=== PATIENT | female | born 1990 | race Caucasian/White ===

== ENCOUNTER 2017-05-29 04:48 | Inpatient (IN) | payer MEDICAID, OTHER ==
[2017-05-29 06:49] LABS: ADD UMIC YES; UR AMORPHOUS CRYSTAL FEW /HPF (NONE SEEN); UR ASCORBIC ACID NEGATIVE (NEGATIVE); UR BACTERIA MODERATE /HPF (NONE SEEN); UR BILIRUBIN (Dip) NEGATIVE (NEGATIVE); UR BLOOD (Dip) NEGATIVE (NEGATIVE); UR CLARITY CLOUDY (CLEAR); UR COLOR YELLOW (YELLOW); UR GLUCOSE (Dip) NEGATIVE (NEGATIVE); UR KETONES (Dip) NEGATIVE (NEGATIVE); UR LEUKOCYTE ESTERASE (Dip) 3+ Leu/ul (NEGATIVE); UR NITRITE (Dip) NEGATIVE (NEGATIVE); UR RBC 7 /HPF (0-5); UR SPECIFIC GRAVITY (Dip) 1.009 (1.003-1.030); UR SQUAMOUS EPITHELIAL CELL MODERATE /HPF (FEW); UR TOTAL PROTEIN (Dip) NEGATIVE (NEGATIVE); UR UROBILINOGEN (Dip) NEGATIVE (NEGATIVE); UR WBC 0 /HPF (0-5)
[2017-05-29] MEDS: LACTATED RINGER'S 1,000 ML IV ×2 (06:54→11:18)
[2017-05-29 07:08] LABS: BARBITURATES Negative (NEGATIVE); BENZODIAZEPINES Negative (NEGATIVE); CANNABINOIDS Negative (NEGATIVE); COCAINE Negative (NEGATIVE); OPIATES Positive (NEGATIVE)
[2017-05-29] MEDS ORDERED: NIFEdipine 10 MG CAP (07:20)
[2017-05-29 07:21] LABS: AMPHETAMINE/METHAMPHETAMINE POSITIVE (NEGATIVE)
[2017-05-29] MEDS: NIFEdipine 10 MG CAP PO ×2 (07:50→08:00)
[2017-05-29] MEDS: BETAMET NA PHOS/AC(6 MG/ML) 5ML INJ IM ×2 (09:00→10:39)
[2017-05-29] MEDS ORDERED: AMPICILLIN 1 GM/NS (PMX) 50 ML IVPB (09:00)
[2017-05-29] MEDS: AMPICILLIN 2 GM/NS (PMX) 100 ML IVPB (09:10)
[2017-05-29 10:18] LABS: RUPTURE FETAL MEMBRANES NEGATIVE (NEGATIVE)
[2017-05-29] MEDS: FENTAnyl 50 MCG/ML VIAL IV ×2 (10:24→10:30)
[2017-05-29 10:49] LABS: ADD MAN DIFF? NO
[2017-05-29 10:51] LABS: BASOPHILS % 0.5 % (0.0-2.0); EOSINOPHILS # 0.1 10^3/ul (0.0-0.5); EOSINOPHILS % 0.7 % (0.0-7.0); HEMATOCRIT 28.6 % (37.0-47.0); HEMOGLOBIN 9.1 g/dl (12.0-16.0); LYMPHOCYTES # 3.2 10^3/ul (0.8-2.9); LYMPHOCYTES % 36.3 % (15.0-51.0); MEAN CORPUSCULAR HEMOGLOBIN 24.9 pg (29.0-33.0); MEAN CORPUSCULAR HGB CONC 31.8 g/dl (32.0-37.0); MEAN CORPUSCULAR VOLUME 78.1 fl (82.0-101.0); MEAN PLATELET VOLUME 11.8 fl (7.4-10.4); MONOCYTE # 0.6 10^3/ul (0.3-0.9); MONOCYTES % 6.8 % (0.0-11.0); NEUTROPHIL # 4.8 10^3/ul (1.6-7.5); NEUTROPHILS % 55.1 % (39.0-77.0); PLATELET COUNT 289 10^3/UL (140-415); RED BLOOD COUNT 3.66 10^6/ul (4.20-5.40); RED CELL DISTRIBUTION WIDTH 16.2 % (11.5-14.5)
[2017-05-29 10:51] LABS: WHITE BLOOD COUNT 8.7 10^3/ul (4.8-10.8)
[2017-05-29] MEDS ORDERED: OXYTOCIN 30 UNITS/LR 500 ML IV ×3 (11:00→13:00)
[2017-05-29] MEDS ORDERED: IBUPROFEN 600 MG TAB PO (11:00)
[2017-05-29] MEDS ORDERED: LIDOCAINE 1% (MPF) 30 ML INJ INJ (11:00)
[2017-05-29] MEDS ORDERED: METHYLERGONOVINE 0.2 MG INJ IM ×2 (11:00→13:00)
[2017-05-29] MEDS ORDERED: CARBOPROST 250 MCG INJ IM ×2 (11:00→13:00)
[2017-05-29] MEDS ORDERED: MISOPROSTOL 200 MCG TAB PR ×2 (11:00→13:00)
[2017-05-29] MEDS ORDERED: FENTAnyl 2MCG/ML-ROPIV 0.2% 100 ML (11:45)
[2017-05-29 11:47] LABS: HEPATITIS B SURFACE ANTIGEN NEGATIVE (NEGATIVE)
[2017-05-29] MEDS ORDERED: NIFEdipine 10 MG CAP PO (12:00)
[2017-05-29 12:07] LABS: HIV 1&2 ANTIBODY NEGATIVE (NEGATIVE)
[2017-05-29] MEDS: OXYTOCIN 30 UNITS/LR 500 ML IV ×2 (12:23→13:52)
[2017-05-29 12:52] LABS: INR 0.94; PROTIME 12.7 Sec (11.9-14.9)
[2017-05-29 12:53] LABS: PARTIAL THROMBOPLASTIN TIME 31.8 Sec (25.0-35.0)
[2017-05-29] MEDS ORDERED: DIPHENHYDRAMINE 25 MG CAP PO (13:00)
[2017-05-29] MEDS ORDERED: ACETAMINOPHEN 325 MG TAB PO (13:00)
[2017-05-29] MEDS ORDERED: LANOLIN 7 GM TUBE TOP (13:00)
[2017-05-29] MEDS ORDERED: WITCH HAZEL/GLYCERIN PAD PR (13:00)
[2017-05-29] MEDS: ONDANSETRON 4 MG INJ IV (13:55)
[2017-05-29] MEDS ORDERED: FENTAnyl 2MCG/ML-ROPIV 0.2% 100 ML BAG EPI (14:30)
[2017-05-29] MEDS ORDERED: ZOLPIDEM 5 MG TAB PO (14:30)
[2017-05-29] MEDS ORDERED: DIPHENHYDRAMINE 50 MG INJ IV (14:30)
[2017-05-29] MEDS ORDERED: HYDROmorphONE 0.5 MG/0.5 ML SYG IV ×2 (14:30)
[2017-05-29] MEDS ORDERED: KETOROLAC 30 MG INJ IV (14:30)
[2017-05-29] MEDS ORDERED: NALOXONE (0.4 MG/ML) INJ IV (14:30)
[2017-05-29] MEDS ORDERED: ONDANSETRON 4 MG INJ IV (14:30)
[2017-05-29] MEDS: IBUPROFEN 600 MG TAB PO ×2 (18:31→23:41)
[2017-05-29] MEDS: HYDROCODONE/APAP (5/325) TAB PO (20:18)
[2017-05-29] MEDS: SENNA/DOCUSATE NA (8.6MG/50MG) TAB PO (21:00)
[2017-05-29 22:00] LABS: RAPID PLASMA REAGIN NONREACTIVE (NR)
[2017-05-30] MEDS: IBUPROFEN 600 MG TAB PO ×2 (05:39→11:38)
[2017-05-30] MEDS: SENNA/DOCUSATE NA (8.6MG/50MG) TAB PO (08:38)
[2017-05-30 09:20] LABS: ADD MAN DIFF? NO
[2017-05-30 09:22] LABS: WHITE BLOOD COUNT 18.3 10^3/ul (4.8-10.8)
[2017-05-30 09:22] LABS: BASOPHILS % 0.1 % (0.0-2.0); HEMATOCRIT 29.5 % (37.0-47.0); HEMOGLOBIN 9.5 g/dl (12.0-16.0); LYMPHOCYTES # 2.3 10^3/ul (0.8-2.9); LYMPHOCYTES % 12.4 % (15.0-51.0); MEAN CORPUSCULAR HEMOGLOBIN 24.7 pg (29.0-33.0); MEAN CORPUSCULAR HGB CONC 32.2 g/dl (32.0-37.0); MEAN CORPUSCULAR VOLUME 76.8 fl (82.0-101.0); MEAN PLATELET VOLUME 11.9 fl (7.4-10.4); MONOCYTE # 0.9 10^3/ul (0.3-0.9); MONOCYTES % 4.9 % (0.0-11.0); NEUTROPHILS % 81.9 % (39.0-77.0); PLATELET COUNT 327 10^3/UL (140-415); RED BLOOD COUNT 3.84 10^6/ul (4.20-5.40); RED CELL DISTRIBUTION WIDTH 16.4 % (11.5-14.5)
[2017-05-30] MEDS: FOLIC ACID 0.4 MG TAB PO (09:35)
[2017-05-31 13:38] LABS: RUBELLA ANTIBODY - IGG <0.90 index
== END 2017-05-30 16:30 | disposition home or self-care (01) | DRG 775 ==
LOC: OBT 04:48 → L-D 04:49 → OBT 08:39 → L-D 08:20 → PP1 15:10
PROC: 10E0XZZ Delivery of Products of Conception, External Approach (ICD-10-PCS; principal; 2017-05-29)
DX: O62.3 Precipitate labor (principal); O60.14X0 Preterm labor third trimester with preterm delivery third trimester, not applicable or unspecified; F19.20 Other psychoactive substance dependence, uncomplicated; O99.324 Drug use complicating childbirth; Z37.0 Single live birth; Z3A.34 34 weeks gestation of pregnancy
CPT/HCPCS: 76815; 76817; 76818; 80307; 81001; 84112; 85025; 85610; 85730; 86592; 86703; 86762; 86900; 86901; 87086; 87340; 87591; 88307; 99464